=== PATIENT | female | born 1950 | race Caucasian/White ===

== ENCOUNTER → 2017-05-25 | Outpatient (CLI) | payer MEDICARE, OTHER ==
--- NOTE | 2017-05-25 17:26 | PCVCIMAG ---
APPROVED REPORT Study performed: 05/25/2017 16:20:29 EXAM: Comprehensive 2D, Doppler, and color-flow Echocardiogram Patient Location: Echo lab Status: routine Other Information Study Quality: Adequate Indications Hypertension/HDD Abnormal EKG. Hyperlipidemia 2D Dimensions IVSd: 5.56 (7-11mm)LVOT Diam: 20.83 (18-24mm) LVDd: 50.92 mm PWd: 6.41 (7-11mm)Ascending Ao: 31.20 (22-36mm) LVDs: 31.52 (25-40mm) Left Atrium: 37.99 (27-40mm) Aortic Root: 30.08 mm LV Single Plane 4CH: 59.20 % LV Single Plane 2CH: 60.91 %Morton's LVEF: 60.06 % Biplane EF: 60.6 % Volumes Left Atrial Volume (Systole) Single Plane 4CH: 29.38 mLSingle Plane 2CH: 43.70 mL LA ESV Index: 21.00 mL/m2 Aortic Valve AoV Peak Ronny.: 1.17 m/s AO Peak Gr.: 5.51 mmHgLVOT Max P.88 mmHg LVOT Max V: 1.10 m/s CHRISTIANO Vmax: 3.20 cm2 Mitral Valve E/A Ratio: 1.3 MV Decel. Time: 155.91 ms MV E Max Ronny.: 0.96 m/s MV A Ronny.: 0.76 m/s MV PHT: 45.22 ms IVRT: 83.04 ms Pulmonary Valve PV Peak Gr.: 1.51 mmHg Pulmonary Vein P Vein S: 0.76 m/sP Vein A: 0.29 m/s P Vein D: 0.52 m/sP Vein A Dur.: 197.2 msec P Vein S/D Ratio: 1.46 Tricuspid Valve TR Peak Ronny.: 2.23 m/s TR Peak Gr.: 19.97 mmHg Left Ventricle The left ventricle is normal size. There is normal LV segmental wall motion. There is normal left ventricular wall thickness. Left ventricular systolic function is normal. The left ventricular ejection fraction is within the normal range. LVEF is 60%. The left ventricular diastolic function is normal. Right Ventricle The right ventricle is normal size. The right ventricular systolic function is normal. Atria The left atrium size is normal. The right atrium size is normal. Aortic Valve The aortic valve is normal in structure. No aortic regurgitation is present. There is no aortic valvular stenosis. Mitral Valve The mitral valve is normal in structure. Mild to moderate mitral regurgitation. No evidence of mitral valve stenosis. Tricuspid Valve The tricuspid valve is normal in structure. Mild tricuspid regurgitation. Pulmonary artery pressure is 27mmhg. Pulmonic Valve The pulmonary valve is normal in structure. There is no pulmonic valvular regurgitation. Great Vessels The aortic root is normal in size. IVC is normal in size and collapses with >50% inspiration Pericardium There is no pericardial effusion. <Conclusion> The left ventricle is normal size. LVEF is 60%. The aortic valve is normal in structure. The mitral valve is normal in structure. Mild to moderate mitral regurgitation. The tricuspid valve is normal in structure. Mild tricuspid regurgitation. Pulmonary artery pressure is 27mmhg. The pulmonary valve is normal in structure.
== END | disposition home or self-care (01) ==
LOC: PCVCIMAG 14:39 → PCVCCLINIC 14:39
PROVIDERS: ATTEND Internal Medicine
DX: I08.1 Rheumatic disorders of both mitral and tricuspid valves (principal); I10 Essential (primary) hypertension; R94.31 Abnormal electrocardiogram [ECG] [EKG]; E78.5 Hyperlipidemia, unspecified; G62.9 Polyneuropathy, unspecified; Z88.0 Allergy status to penicillin; Z88.6 Allergy status to analgesic agent
CPT/HCPCS: 93005; 93306; G0463